=== PATIENT | male | born 1980 | race Two or more races ===

== ENCOUNTER → 2025-02-03 | Outpatient (CLI) | payer BC, SELFPAY ==
[2025-02-03 09:27] LABS: Basophils # (Auto) 0.1 Thou/mm3 (0.0-0.2); Basophils % (Auto) 1 % (0-2.5); Eosinophils # (Auto) 0.1 Thou/mm3 (0.0-0.5); Eosinophils % (Auto) 1 % (0-10); Hematocrit 46.6 % (41.0-53.0); Hemoglobin 16.4 g/dL (13.5-16.0); Immature Granulocytes Auto 0.05 Thou/mm3 (0.00-0.00); Lymphocytes # (Auto) 2.4 Thou/mm3 (1.0-4.8); Lymphocytes % (Auto) 32 % (10-50); Mean Corpuscular HGB Conc 35.2 g/dl (31.0-37.0); Mean Corpuscular Hemoglobin 32.0 pg (25.0-35.0); Mean Corpuscular Volume 91 fL (80-100); Monocytes # (Auto) 0.7 Thou/mm3 (0.0-0.8); Monocytes % (Auto) 9 % (0-12); Neutrophils # (Auto) 4.2 Thou/mm3 (1.8-7.7); Neutrophils % (Auto) 56 % (37-80); Nucleated Red Blood Cell # 0.00 Thou/mm3 (0.00-0.00); Nucleated Red Blood Cell % 0 /100 WBC (0); Platelet Count 177 Thou/mm3 (140-440); RDW Standard Deviation 39.7 fL (35.1-43.9); Red Blood Count 5.12 Miln/mm3 (4.50-5.90); White Blood Count 7.4 Thou/mm3 (3.8-10.6)
== END | disposition home or self-care (01) ==
LOC: COPL 08:03
PROVIDERS: PCP Family Medicine; Referring Provider Family Medicine; Visit Provider Family Medicine
DX: E78.5 Hyperlipidemia, unspecified (principal); K21.9 Gastro-esophageal reflux disease without esophagitis; J30.9 Allergic rhinitis, unspecified
CPT/HCPCS: 36415; 80048; 80061; 80076; 85025

== ENCOUNTER → 2025-02-06 | Outpatient (CLI) | payer BC, SELFPAY ==
[2025-02-06 10:20] LABS: Alanine Aminotransferase 77 U/L (10-49); Albumin, Serum 5.1 gm/dL (3.5-5.0); Alkaline Phosphatase 131 U/L (46-116); Anion Gap 11 (7-16); Aspartate Amino Transferase 48 U/L (0-34); BUN/Creatinine Ratio 9 Ratio (12-20); Bilirubin,Direct 0.2 mg/dL (0.0-0.3); Bilirubin,Total 0.8 mg/dL (0.3-1.2); Blood Urea Nitrogen 10 mg/dL (9-23); Calcium 9.9 mg/dL (8.3-10.6); Carbon Dioxide 29.3 mMol/L (20.0-31.0); Cardiac Risk Estimate 4.3 RATIO (4.0-6.7); Chloride 94 mMol/L (98-107); Cholesterol 210 mg/dL (132-200); Creatinine (Component) 1.1 mg/dL (0.6-1.3); Glucose 364 mg/dL (74-106); HDL Cholesterol 49 mg/dL (40-60); LDL Cholesterol,Calculated 105 mg/dL (0-130); Osmolality,Calculated 282 (275-295); Potassium 4.6 mMol/L (3.4-5.1); Sodium 134 mMol/L (136-145); Total Protein 7.8 gm/dL (5.7-8.2); Triglycerides 280 mg/dL (30-150); eGFR > 60 See Note
== END | disposition home or self-care (01) ==
LOC: SLDO 08:21
PROVIDERS: Referring Provider Family Medicine; Visit Provider Family Medicine
DX: E78.5 Hyperlipidemia, unspecified (principal); K21.9 Gastro-esophageal reflux disease without esophagitis; J30.9 Allergic rhinitis, unspecified
CPT/HCPCS: 36415; 80048; 80061; 80076

== ENCOUNTER 2025-03-04 16:34 | Emergency (ER) | payer BC, SELFPAY ==
[2025-03-04 16:43] VITALS: BP 146/91; PULSE 85; RESP 17; TEMP 36.7; O2SAT 97; BMI 33.4
--- NOTE | 2025-03-04 18:42 | PD.EDADULT ---
ED General RME/HPI General Chief complaint: Eye Problems Stated complaint: Blurry vision X 2 days Time Seen by Provider: 03/04/25 18:18 Arrival date/time: 03/04/25 16:34 CC: Blurred vision HPI ongoing for the past 4 days however the patient mitts that he had new glasses made in March and has been not able to find him with the old glasses and has had blurry vision. Patient denies headache nausea vomiting or diarrhea no other complaints. Patient is awake alert oriented nontoxic-appearing not in any acute distress. Related Data Previous Rx's ?Medication ?Instructions ?Recorded Hydrocodone/Acetaminophen * (NORCO 1 tab PO HSPRN PRN PAIN #10 tabs 07/02/15 5/325 *) acetaminophen 325 mg capsule 975 mg (3 x 325 mg) PO Q6H PRN 11/15/19 pain #30 caps ibuprofen 600 mg tablet 600 mg PO Q6H #30 tabs 11/15/19 pseudoephedrine HCl 60 mg tablet 60 mg PO Q6H PRN nasal congestion 11/15/19 #20 tabs albuterol sulfate 90 mcg/actuation 2 puff inhalation QID #18 grams 11/18/19 aerosol inhaler azithromycin 250 mg tablet See Rx Instructions PO .COMPLEX #6 11/18/19 tabs cetirizine 10 mg tablet (Zyrtec) 10 mg PO QDAY seasonal allergies 11/18/19 #30 tabs ibuprofen 600 mg tablet 600 mg PO QID fever #30 tabs 11/18/19 sodium chloride 0.65 % nasal spray 2 spray intranasal QID #60 mL 11/18/19 aerosol (Saline Nasal) albuterol sulfate 90 mcg/actuation 2 puff inhalation QID PRN 12/16/19 aerosol inhaler shortness of breath or wheezing #18 grams hydrocortisone 2.5 % topical 1 applicatio topical BID #28.35 12/16/19 ointment grams metoclopramide HCl 10 mg tablet 10 mg PO Q6H PRN nausea and 07/27/21 (Reglan) vomiting #10 tabs Allergies Allergy/AdvReac Type Severity Reaction Status Date / Time No Known Allergies Allergy Verified 03/04/25 16:37 Review of Systems Review of Systems Narrative Review of Systems: GEN: No fever, no chills, no weight loss EYES: No discharge, + visual changes, no pain HEENT: No ear pain, no congestion, no sore throat PULM: No shortness of breath, no cough, no congestion CV: No chest pain, no dyspnea on exertion, no palpitations GI: No nausea, no vomiting, no diarrhea, no pain, no constipation : No frequency, no urgency, no dysuria MUSC/SKEL: No joint pain, no back pain SKIN: No rash PSYCH: No hallucinations, no depression HEME/LYMPH: No easy bleeding or bruising tendencies NEURO: No weakness, no headache Past Medical History Past Medical History NEUROLOGIC: Negative Neurological Disorders CARDIAC: Negative Cardiac Disorders or Congestive Heart Failure RESPIRATORY: Negative Chronic Obstructive Pulmonary Disease (COPD) GASTROINTESTINAL: Positive Gastrointestinal Disorders and Gastroesophageal Reflux Disease GENITOURINARY: Negative Genitourinary Disorders or Renal Disease MUSCULOSKELETAL: Negative Musculoskeletal Disorders ENDOCRINE: Negative Endocrine Disorders, Diabetes Mellitus Type 1 or Diabetes Mellitus Type 2 OTHER HISTORY: Positive Hospitalization; Negative Autoimmune Disease Family History FAMILY HISTORY: Positive Family Cardiac Disorders; Negative Family Psychiatric Problems, Family Respiratory Disorders, Family Gastrointestinal Problems, Family Cancer, Family Surgery or Family Anesthesia Reaction Social History SMOKING STATUS: Former smoker SUBSTANCE USE: former substance user (cocaine as teen) ED Exam Narrative Physical exam: [General: Obese not in cot no acute distress Head normocephalic HEENT: Eyes: Pupils are PERRLA EOMs are intact no entrapment good accommodation. All other subsystems of HEENT are within acceptable limits Neck is supple nontender Chest equal chest rise nontender to palpation Respiratory: Clear to auscultation no wheezes crackles or rubs Course Course Course Narrative: Patient has no acute finding, the patient is immediately restored vision with corrective lenses at 2+ magnification. Patient advised to follow-up with [facility]. Quality Measures none Vital Signs Vital signs: Vital Signs Temperature 98.1 F 03/04/25 16:43 Pulse Rate 85 03/04/25 16:43 Respiratory Rate 17 03/04/25 16:43 Blood Pressure 146/91 H 03/04/25 16:43 Pulse Oximetry (%) 97 03/04/25 16:43 Oxygen Delivery Method Room Air 03/04/25 16:43 Discharge Plan Plan Patient Disposition: HOME (Self Care) Patient condition on transfer: Stable Prescriptions/Referrals Prescriptions/Med Rec: No Action Hydrocodone/Acetaminophen * (NORCO 5/325 *) 1 TAB tablet 1 tab PO HSPRN PRN (Reason: PAIN) Qty: 10 0RF Rx Instructions: FOR PAIN pseudoephedrine HCl 60 mg tablet 60 mg PO Q6H PRN (Reason: nasal congestion) Qty: 20 0RF ibuprofen 600 mg tablet 600 mg PO Q6H Qty: 30 0RF acetaminophen 325 mg capsule 975 mg PO Q6H PRN (Reason: pain) Qty: 30 0RF azithromycin 250 mg tablet See Rx Instructions .ROUTE .COMPLEX Qty: 6 0RF Rx Instructions: take 500 mg today (day 1), then 250 mg for 4 days (days 2-5) albuterol sulfate 90 mcg/actuation HFA aerosol inhaler 2 puff IH QID Qty: 18 0RF sodium chloride [Saline Nasal] 0.65 % aerosol,spray 2 spray INTRANASAL QID Qty: 60 0RF cetirizine [Zyrtec] 10 mg tablet 10 mg PO QDAY Qty: 30 0RF ibuprofen 600 mg tablet 600 mg PO QID Qty: 30 0RF albuterol sulfate 90 mcg/actuation HFA aerosol inhaler 2 puff IH QID PRN (Reason: shortness of breath or wheezing) Qty: 18 0RF hydrocortisone 2.5 % ointment 1 applicatio TOPICAL BID Qty: 28.35 0RF metoclopramide HCl [Reglan] 10 mg tablet 10 mg PO Q6H PRN (Reason: nausea and vomiting) Qty: 10 0RF Referrals: No Primary/Family,Physician [Primary Care Provider] - In 1 week Problem List Clinical Impression: Blurred vision Patient/Caregiver Discharge Instructions Education Materials: ED Blurred Vision Additional Instructions: Follow-up with [facility], if there is worsening of vision in spite of the medication and the glasses return the emergency room immediately for further evaluation. Print Language: Georgian Stand Alone Forms: [employer] Award Info., Work/School Release, Patient Portal Info Letter PA/LEE Supervising Physician PA/LEE Supervising Physician: Ross Raines ENP MDM Clinical Information Provided by: patient Medical Records reviewed [facility] Meds/Rx considered, not ordered None Labs/Rad/Tests considered, not ordered None EKG EKG not done Labs Labs: none Imaging Imaging interpretation: none Medication Administration(s) none Diagnosis Differential Diagnosis ED Complaint MDM: Subconjunctival hemorrhage. Conjunctivitis. Closed angle glaucoma
== END 2025-03-04 18:53 | disposition home or self-care (01) ==
PROVIDERS: Emergency Provider Emergency Medicine
DX: H53.8 Other visual disturbances (principal)
CPT/HCPCS: 99281